=== PATIENT | male | born 2000 | race Two or more races ===

== ENCOUNTER 2022-09-28 23:56 | Emergency (ER) | payer SELFPAY | END 2022-09-29 00:14 | disposition home or self-care (01) | LOC: MW.ED 23:56 | DX: F10.129 Alcohol abuse with intoxication, unspecified (principal) | CPT/HCPCS: 99283 ==

== ENCOUNTER 2023-04-21 17:57 | Emergency (ER) | payer SELFPAY ==
[2023-04-21] MEDS ORDERED: Diphtheria,Pertussis(Acell),Tetanus Vaccine 0.5 ML Syringe IM ONE (19:24)
[2023-04-21] MEDS ORDERED: Ondansetron 4 MG Tab.DIS PO ONE (20:58)
[2023-04-21] MEDS ORDERED: Acetaminophen/HYDROcodone 325-5 MG Tab PO ONE (20:58)
[2023-04-21] MEDS ORDERED: Lidocaine 1% PF 2 ML SDV INJECT ONE (20:58)
[2023-04-21] MEDS ORDERED: Bacitracin Oint 1 GM U/D Packet TOP ONE (21:51)
== END 2023-04-21 22:10 | disposition home or self-care (01) ==
LOC: MW.ED 17:57
DX: S67.195A Crushing injury of left ring finger, initial encounter (principal); S67.191A Crushing injury of left index finger, initial encounter; S67.193A Crushing injury of left middle finger, initial encounter; S61.213A Laceration without foreign body of left middle finger without damage to nail, initial encounter; S60.142A Contusion of left ring finger with damage to nail, initial encounter; Z23 Encounter for immunization; W23.0XXA Caught, crushed, jammed, or pinched between moving objects, initial encounter; Y92.89 Other specified places as the place of occurrence of the external cause; Y99.0 Civilian activity done for income or pay
CPT/HCPCS: 73140; 90471; 90715; 99283; A9270; J3490

== ENCOUNTER 2023-04-25 23:56 | Emergency (ER) | payer OTHER, BC ==
[~2023-04-25 23:56] MED LIST: Ketamine 500 mg/10 ML MDV IV ONE; Lactated Ringers 1,000 ML IV STA
[2023-04-25] MEDS ORDERED: Rocuronium 50 MG/5 ML Vial IV ONE (23:59)
[2023-04-26] MEDS ORDERED: Sodium Chloride 0.9% 1,000 ML IV ONE
[2023-04-26] MEDS ORDERED: fentaNYL 100 MCG/2 ML SDV IVPUSH ONE ×2 (00:05→00:22)
[2023-04-26] MEDS ORDERED: Midazolam 5 MG/ML SDV IVPUSH ONE (00:13)
[2023-04-26] MEDS ORDERED: fentaNYL/Normal Saline 2,500 MCG in Premix Bag 1 BAG IV PRN (00:18)
[2023-04-26] MEDS ORDERED: Rocuronium 50 MG/5 ML Vial IV ONE (01:10)
[2023-04-26] MEDS ORDERED: Diphtheria,Pertussis(Acell),Tetanus Vaccine 0.5 ML Syringe IM ONE (01:15)
[2023-04-26] MEDS ORDERED: ceFAZolin 2 GM in Sodium Chloride 0.9% 50 ML IV ONE (01:15)
[2023-04-26 01:46] LABS: INR 1.12 (0.86-1.11); PTT,PARTIAL THROMBOPLSTIN TIME 23.5 SEC (23.9-30.7)
[2023-04-26 03:55] LABS: BASOPHILS PERCENT AUTO 0.2 % (0.0-1.5); EOSINOPHILS ABSOLUTE AUTO 0.2 K/uL (0.0-0.7); EOSINOPHILS PERCENT AUTO 1.2 % (0.0-7.0); HEMATOCRIT 34.7 % (38.0-50.0); HEMOGLOBIN 11.9 g/dL (13.0-17.0); LYMPHOCYTES ABSOLUTE AUTO 4.9 K/uL (0.6-2.4); LYMPHOCYTES PERCENT AUTO 30.3 % (16.0-40.0); MEAN CORPUSCULAR HEMOGLOBIN 30.4 pg (27.0-32.0); MEAN CORPUSCULAR HGB CONC 34.3 g/dL (31.0-37.0); MEAN CORPUSCULAR VOLUME 88.5 fL (80.0-98.0); MONOCYTES ABSOLUTE AUTO 0.8 K/uL (0.0-0.8); MONOCYTES PERCENT AUTO 5.2 % (0.0-15.0); NEUTROPHILS ABSOLUTE AUTO 10.1 K/uL (1.4-5.7); NEUTROPHILS PERCENT AUTO 63.1 % (48.0-80.0); NRBC ABSOLUTE 0 K/uL; PLATELET COUNT,PLT 211 K/uL (150-400); RED BLOOD CELL COUNT 3.92 M/uL (4.50-5.90); WHITE BLOOD CELL COUNT,WBC 16.08 K/uL (4.0-11.0)
[2023-04-26 03:55] LABS: BLOOD UREA NITROGEN,BUN 19 mg/dL (7.0-18.0); CALCIUM 7.3 mg/dL (8.5-10.1); CARBON DIOXIDE,CO2 16.2 mmol/L (21.0-32.0); CHLORIDE,CL 106 mmol/L (98-107); CREATININE 1.4 mg/dL (0.8-1.3); ESTIMATED GFR 74 mL/min (>60); GLUCOSE RANDOM 193 mg/dL (74-106); POTASSIUM,K 3.2 mmol/L (3.5-5.1); SODIUM,NA 141 mmol/L (136-148)
== END 2023-04-26 01:39 ==
LOC: MW.ED 23:56
DX: S72.351A Displaced comminuted fracture of shaft of right femur, initial encounter for closed fracture (principal); S32.401A Unspecified fracture of right acetabulum, initial encounter for closed fracture; Z23 Encounter for immunization; V29.408A Other motorcycle driver injured in collision with unspecified motor vehicles in traffic accident, initial encounter
CPT/HCPCS: 31500; 32551; 36415; 36430; 43752; 51702; 71045; 72170; 73552; 73590; 80048; 85025; 85610; 85730; 86850; 86900; 86901; 86920; 90471; 90715; 96361; 96365; 96375; 96376; 99285; G0390; J0690; J2250; J3010; J3490; J7030; J7120; P9016; P9017; 99291

== ENCOUNTER 2023-06-28 16:11 | Emergency (ER) | payer BC ==
[2023-06-28] MEDS ORDERED: Acetaminophen/oxyCODONE 325-5 MG Tab PO ONE (19:07)
== END 2023-06-28 19:24 | disposition home or self-care (01) ==
LOC: MW.ED 16:11
DX: Z76.0 Encounter for issue of repeat prescription (principal); F17.210 Nicotine dependence, cigarettes, uncomplicated; Z79.82 Long term (current) use of aspirin; Z79.899 Other long term (current) drug therapy
CPT/HCPCS: 99281; A9270; 99282

== ENCOUNTER 2025-05-11 12:12 | Emergency (ER) | payer SELFPAY | END 2025-05-11 12:55 | disposition home or self-care (01) | LOC: MW.ED 12:12 | DX: H60.91 Unspecified otitis externa, right ear (principal); Z79.899 Other long term (current) drug therapy; Z75.3 Unavailability and inaccessibility of health-care facilities | CPT/HCPCS: 99282 ==

== ENCOUNTER 2025-07-06 21:01 | Emergency (ER) | payer SELFPAY | END 2025-07-06 21:50 | LOC: MW.ED 21:01 | DX: S00.81XA Abrasion of other part of head, initial encounter (principal); F10.129 Alcohol abuse with intoxication, unspecified; W22.8XXA Striking against or struck by other objects, initial encounter | CPT/HCPCS: 12011; 99282; 99284 ==